=== PATIENT | male | born 1985 | race Caucasian/White ===

== ENCOUNTER 2024-01-16 23:09 | Emergency (ER) | payer BC ==
[~2024-01-16] VITALS: Ht 160 cm; Wt 59.9 kg
[2024-01-16 23:57] VITALS: BP 115/62; TEMP 97.8; O2SAT 98
[2024-01-17] MEDS ORDERED: SILVER SULFADIAZINE CREAM 25 GM TUBE ONE (00:04)
[2024-01-17] MEDS: SILVER SULFADIAZINE CREAM 25 GM TUBE TP ONE (00:05)
== END 2024-01-17 00:06 | disposition home or self-care (01) ==
LOC: ER 23:23
DX: T23.072A Burn of unspecified degree of left wrist, initial encounter (principal); J45.909 Unspecified asthma, uncomplicated; Z90.89 Acquired absence of other organs; X15.8XXA Contact with other hot household appliances, initial encounter; Y93.89 Activity, other specified; Y92.89 Other specified places as the place of occurrence of the external cause; Y99.8 Other external cause status